=== PATIENT | male | born 1970 | race African-American/Black ===

== ENCOUNTER 2017-03-15 22:02 | Emergency (ER) | payer MEDICAID ==
[~2017-03-15] VITALS: Ht 175.3 cm; Wt 90.0 kg
[~2017-03-15 22:02] MED LIST: AMLO5TAB88 PO; ASPI-1079 PO; ATEN-42 PO; CARI350T PO; DIAZ10TA PO; HYDR-519 PO; HYDR12.54 PO; NORCO PO
[2017-03-15] MEDS ORDERED: SODIUM CHLORIDE 0.9% 1,000 ML IV ONE (22:56)
[2017-03-15] MEDS ORDERED: ONDANSETRON HCL 4MG/2ML VIAL IV ONE (23:15)
[2017-03-15 23:31] LABS: BASOPHILS % 0.6 % (0.0-2.0); EOSINOPHILS % 1.4 % (0.0-5.0); HEMATOCRIT. 33.8 % (42.0-52.0); LYMPHOCYTES % 40.9 % (20.0-50.0); MEAN CORPUSCULAR HEMOGLOBIN 31.6 pg (28.0-32.0); MEAN CORPUSCULAR HGB CONC 32.7 g/dL (31.0-37.0); MEAN CORPUSCULAR VOLUME 96.9 fL (80.0-94.0); MONOCYTES % 5.5 % (2.0-8.0); NEUTROPHILS % 51.6 % (40.0-76.0); PLATELET 351 x1000/uL (130-400); RED BLOOD CELL COUNT 3.49 mill/uL (4.7-6.1); RED CELL DISTRIBUTION WIDTH 14.1 % (11.6-14.6); WHITE BLOOD COUNT 5.7 x1000/uL (4.5-11.0)
[2017-03-15 23:43] LABS: PARTIAL THROMBOPLASTIN TIME 26.1 sec (24.0-34.0); PROTHROMBIN TIME 10.5 sec
[2017-03-15 23:50] LABS: ACETAMINOPHEN < 2 ug/mL (10-30); ANION GAP 13; CALCIUM 8.2 mg/dL (8.5-10.1); CARBON DIOXIDE 27 mEq/L (21-32); CHLORIDE 107 mEq/L (98-107); ETHANOL BLOOD < 10 mg/dL; INDEX HEMOLYSI 1 (1-3); INDEX ICTERIC 1 (1-4); INDEX LIPEMIC 1 (1-3); TROPONIN I < 0.02 ng/mL (0.00-0.04); UREA NITROGEN BLOOD 12 mg/dL (7-21); eGFR > 60 mL/min (>60)
[2017-03-16 00:12] LABS: *AMPHETAMINES SCREEN URINE NEGATIVE (NEGATIVE); *BARBITURATES SCREEN URINE NEGATIVE (NEGATIVE); *BENZODIAZEPINES SCREEN URINE PRESUMTIVE POSITIVE (NEGATIVE); *COCAINE SCREEN URINE NEGATIVE (NEGATIVE); CANNABINOID URINE SCREEN PRESUMTIVE POSITIVE (NEGATIVE); ECSTASY MDMA SCREEN URINE NEGATIVE (NEGATIVE); METHADONE URINE SCREEN NEGATIVE (NEGATIVE); OPIATES URINE SCREEN PRESUMTIVE POSITIVE (NEGATIVE); PHENCYCLIDINE URINE SCREEN NEGATIVE (NEGATIVE)
[2017-03-16 01:30] VITALS: BP 135/80
== END 2017-03-16 02:22 | disposition home or self-care (01) ==
LOC: ER 22:02
DX: G92 Toxic encephalopathy (principal); T40.2X1A Poisoning by other opioids, accidental (unintentional), initial encounter; F12.929 Cannabis use, unspecified with intoxication, unspecified; I10 Essential (primary) hypertension; D64.9 Anemia, unspecified; I45.10 Unspecified right bundle-branch block; I51.7 Cardiomegaly; Z79.82 Long term (current) use of aspirin
CPT/HCPCS: 36415; 80048; 80305; 80307; 80329; 84484; 85025; 85610; 85730; 93005; 96361; 96374; 99285; G0482; J2405; J7030; Z7610

== ENCOUNTER 2017-12-27 14:07 | Emergency (ER) | payer MEDICAID ==
[~2017-12-27] VITALS: Ht 175.3 cm; Wt 82.0 kg
[2017-12-27 20:25] VITALS: BP 134/86
[2017-12-27] MEDS ORDERED: DIAZEPAM 5 MG TABLET PO ONE (20:30)
== END 2017-12-27 21:15 | disposition home or self-care (01) ==
LOC: ER 14:27
DX: M54.5 Low back pain (principal); G89.29 Other chronic pain; F17.200 Nicotine dependence, unspecified, uncomplicated; J45.909 Unspecified asthma, uncomplicated; R56.9 Unspecified convulsions; I10 Essential (primary) hypertension; Z79.82 Long term (current) use of aspirin; Z88.6 Allergy status to analgesic agent; Z88.8 Allergy status to other drugs, medicaments and biological substances
CPT/HCPCS: 99283

== ENCOUNTER 2018-02-26 17:34 | Emergency (ER) | payer MEDICAID ==
[~2018-02-26] VITALS: Ht 177.8 cm; Wt 80.0 kg
[2018-02-26 23:16] LABS: BASOPHILS % 0.5 % (0.0-2.0); EOSINOPHILS % 1.2 % (0.0-5.0); HEMATOCRIT. 34.4 % (42.0-52.0); HEMOGLOBIN. 11.3 g/dL (14.0-18.0); LYMPHOCYTES % 30.5 % (20.0-50.0); MEAN CORPUSCULAR HEMOGLOBIN 31.7 pg (28.0-32.0); MEAN CORPUSCULAR VOLUME 96.3 fL (80.0-94.0); MEAN PLATELET VOLUME 5.9 fl (7.4-10.4); MONOCYTES % 6.2 % (2.0-8.0); NEUTROPHILS % 61.6 % (40.0-76.0); PLATELET 341 x1000/uL (130-400); RED BLOOD CELL COUNT 3.57 mill/uL (4.7-6.1); RED CELL DISTRIBUTION WIDTH 13.6 % (11.6-14.6)
[2018-02-26 23:20] LABS: ETHANOL BLOOD < 10 mg/dL
[2018-02-26 23:24] LABS: CHLORIDE 105 mEq/L (98-107); CREATINE KINASE 323 IU/L (39-308)
[2018-02-26] MEDS ORDERED: ACETAMINOPHEN 500MG TABLET PO ONE (23:30)
[2018-02-26] MEDS ORDERED: LEVETIRACETAM 100MG/ML ORAL SYR PO ONE (23:30)
[2018-02-26] MEDS ORDERED: LEVETIRACETAM 500MG TABLET PO NR (23:45)
[2018-02-26] MEDS: SODIUM CHLORIDE 0.9% 1,000 ML IV NR (23:49)
[2018-02-27 00:33] VITALS: BP 113/74
[2018-02-27] MEDS: SODIUM CHLORIDE 0.9% 1,000 ML IV NR (00:33)
== END 2018-02-27 00:37 | disposition home or self-care (01) ==
LOC: ER 17:46
DX: T39.1X1A Poisoning by 4-Aminophenol derivatives, accidental (unintentional), initial encounter (principal); T40.2X1A Poisoning by other opioids, accidental (unintentional), initial encounter; G89.29 Other chronic pain; F11.10 Opioid abuse, uncomplicated; I10 Essential (primary) hypertension; F41.9 Anxiety disorder, unspecified; J45.909 Unspecified asthma, uncomplicated; Z79.82 Long term (current) use of aspirin; Z88.6 Allergy status to analgesic agent; Z88.8 Allergy status to other drugs, medicaments and biological substances; Y92.89 Other specified places as the place of occurrence of the external cause
CPT/HCPCS: 36415; 70450; 80053; 80307; 80329; 82550; 84443; 85025; 93005; 96360; 99285; G0482; J7030; Z7610

== ENCOUNTER 2018-11-02 15:19 | Emergency (ER) | payer MEDICAID ==
[~2018-11-02] VITALS: Ht 175.3 cm; Wt 80.0 kg
[~2018-11-02 15:19] MED LIST changes: -CARI350T PO; +S350 PO
[2018-11-02] MEDS ORDERED: MORPHINE SULFATE 10 MG/ML CPJ IM ONE (17:00)
[2018-11-02] MEDS ORDERED: KETOROLAC 30MG/ML VIAL IM ONE (18:30)
[2018-11-02] MEDS ORDERED: ONDANSETRON 4MG ODT PO ONE (18:30)
[2018-11-02] MEDS ORDERED: HYDROCODONE/ACETAMINOPHEN 5/325MG TABLET PO PRN (18:45)
[2018-11-02 20:37] VITALS: BP 135/84
== END 2018-11-02 20:39 | disposition home or self-care (01) ==
LOC: ER 15:19
DX: S93.401A Sprain of unspecified ligament of right ankle, initial encounter (principal); I10 Essential (primary) hypertension; J45.909 Unspecified asthma, uncomplicated; F41.9 Anxiety disorder, unspecified; R56.9 Unspecified convulsions; W18.39XA Other fall on same level, initial encounter; Y93.55 Activity, bike riding; Y92.89 Other specified places as the place of occurrence of the external cause; Z88.6 Allergy status to analgesic agent; Z88.8 Allergy status to other drugs, medicaments and biological substances; Z79.82 Long term (current) use of aspirin
CPT/HCPCS: 73610; 73620; 96372; 99283; J1885; J2270; Q0162

== ENCOUNTER 2023-09-16 15:12 | Emergency (ER) | payer MEDICAID, OTHER ==
[~2023-09-16] VITALS: Ht 172.7 cm; Wt 75.0 kg
[~2023-09-16 15:12] MED LIST changes: +CARI350T28 PO; +DIAZ-570 PO; -DIAZ10TA PO; -S350 PO
[2023-09-16 15:15] VITALS: O2SAT 98
[2023-09-16] MEDS ORDERED: SODIUM CHLORIDE 0.9% 1,000 ML IV ONE (15:15)
[2023-09-16] MEDS ORDERED: LEVETIRACETAM 500MG PREMIX 100 ML IV ONE (15:15)
[2023-09-16 15:40] LABS: BASOPHILS % 0.8 % (0.0-2.0); LYMPHOCYTES % 20.6 % (20.0-50.0); MEAN CORPUSCULAR HEMOGLOBIN 32.3 pg (28.0-32.0); MEAN CORPUSCULAR HGB CONC 33.2 g/dL (31.0-37.0); MEAN PLATELET VOLUME 5.6 fl (7.4-10.4); NEUTROPHILS % 74.6 % (40.0-76.0); PLATELET 413 x1000/uL (130-400); RED BLOOD CELL COUNT 2.47 mill/uL (4.7-6.1); RED CELL DISTRIBUTION WIDTH 14.6 % (11.6-14.6)
[2023-09-16 15:52] LABS: INR 1.1; PARTIAL THROMBOPLASTIN TIME 29.7 sec (23.4-31.0); PROTHROMBIN TIME 12.1 sec (9.6-11.0)
[2023-09-16 16:04] LABS: CHLORIDE 100 mEq/L (98-107); INDEX HEMOLYSI 1 (1-3); INDEX ICTERIC 1 (1-4); INDEX LIPEMIC 1 (1-3); POTASSIUM 4.1 mEq/L (3.5-5.1); SODIUM 134 mEq/L (136-145)
[2023-09-16 16:15] LABS: ALANINE AMINOTRANSFERASE 48 IU/L (13-61); ALBUMIN 3.4 g/dL (3.4-5.0); ASPARTATE AMINOTRANSFERASE 32 IU/L (15-37); BILIRUBIN TOTAL 0.7 mg/dL (0.1-1.0); CALCIUM 8.8 mg/dL (8.5-10.1); CARBON DIOXIDE 28 mEq/L (21-32); CREATININE 1.3 mg/dL (0.6-1.3); ETHANOL BLOOD < 10 mg/dL (<10); GLUCOSE 105 mg/dL (70-105); NT PRO B-TYPE NATRIURETIC PEP 134 pg/mL (5-125); PROTEIN TOTAL 6.6 g/dL (6.0-8.3); TROPONIN I HIGH SENSITIVITY 10 ng/L (<78); UREA NITROGEN BLOOD 24 mg/dL (7-21)
[2023-09-16 20:22] LABS: TROPONIN I HIGH SENSITIVITY 11 ng/L (<78)
[2023-09-17 00:23] VITALS: BP 142/80; PULSE 89; RESP 20; TEMP 98.5
== END 2023-09-17 00:40 | disposition short-term general hospital (02) ==
LOC: ER 15:12
DX: S09.90XA Unspecified injury of head, initial encounter (principal); R07.89 Other chest pain; R55 Syncope and collapse; F41.9 Anxiety disorder, unspecified; J45.909 Unspecified asthma, uncomplicated; I10 Essential (primary) hypertension; Z79.899 Other long term (current) drug therapy; W18.39XA Other fall on same level, initial encounter; Y93.89 Activity, other specified; Y92.89 Other specified places as the place of occurrence of the external cause; Y99.8 Other external cause status
CPT/HCPCS: 80053; 80320; 83880; 85025; 85610; 85730; 84484; 36415; 71045; 70450; 93005; 96365; 99285; J1953; J7030; G0480

== ENCOUNTER 2023-09-19 12:51 | Emergency (ER) | payer OTHER ==
[~2023-09-19] VITALS: Ht 175.3 cm; Wt 74.0 kg
[2023-09-19 13:05] VITALS: O2SAT 99
[2023-09-19] MEDS ORDERED: GABA-532 MT (13:36)
[2023-09-19 14:24] VITALS: BP 102/79; PULSE 86; RESP 16; TEMP 98.3
== END 2023-09-19 14:32 | disposition home or self-care (01) ==
LOC: ER 12:51
DX: R52 Pain, unspecified (principal); Z88.6 Allergy status to analgesic agent; Z88.8 Allergy status to other drugs, medicaments and biological substances; Z88.5 Allergy status to narcotic agent; Z79.899 Other long term (current) drug therapy
CPT/HCPCS: 99283

== ENCOUNTER 2023-10-13 13:02 | Emergency (ER) | payer OTHER ==
[~2023-10-13] VITALS: Ht 175.3 cm; Wt 72.0 kg
[~2023-10-13 13:02] MED LIST changes: +GABA-532 MT
[2023-10-13 13:21] VITALS: O2SAT 99
[2023-10-13] MEDS ORDERED: LEVETIRACETAM 500MG TABLET PO ONE (14:00)
[2023-10-13 14:56] LABS: BASOPHILS % 0.3 % (0.0-2.0); EOSINOPHILS % 0.1 % (0.0-5.0); LYMPHOCYTES % 14.1 % (20.0-50.0); MEAN CORPUSCULAR HEMOGLOBIN 32.9 pg (28.0-32.0); MEAN CORPUSCULAR HGB CONC 33.2 g/dL (31.0-37.0); MEAN CORPUSCULAR VOLUME 98.9 fL (80.0-94.0); MEAN PLATELET VOLUME 5.5 fl (7.4-10.4); MONOCYTES % 4.5 % (2.0-8.0); PLATELET 487 x1000/uL (130-400); RED BLOOD CELL COUNT 3.03 mill/uL (4.7-6.1); RED CELL DISTRIBUTION WIDTH 15.7 % (11.6-14.6); WHITE BLOOD COUNT 6.7 x1000/uL (4.5-11.0)
[2023-10-13 15:30] LABS: ALANINE AMINOTRANSFERASE 29 IU/L (10-49); ALBUMIN 4.5 g/dL (3.2-4.8); ASPARTATE AMINOTRANSFERASE 19 IU/L (<34); BILIRUBIN TOTAL 0.9 mg/dL (0.1-1.0); CALCIUM 9.5 mg/dL (8.7-10.4); CARBON DIOXIDE 29 mEq/L (21-32); CHLORIDE 105 mEq/L (98-107); GLUCOSE 89 mg/dL (70-105); POTASSIUM 3.9 mEq/L (3.5-5.1); PROTEIN TOTAL 7.7 g/dL (6.0-8.3); SODIUM 139 mEq/L (136-145); UREA NITROGEN BLOOD 6 mg/dL (9-23)
[2023-10-13 16:30] VITALS: BP 130/68; PULSE 65; RESP 18; TEMP 98.9
== END 2023-10-13 17:00 | disposition home or self-care (01) ==
LOC: ER 13:14
DX: R56.9 Unspecified convulsions (principal); F41.9 Anxiety disorder, unspecified; M19.90 Unspecified osteoarthritis, unspecified site; J45.909 Unspecified asthma, uncomplicated; I10 Essential (primary) hypertension; F15.90 Other stimulant use, unspecified, uncomplicated
CPT/HCPCS: 36415; 73030; 80053; 83735; 85025; 99284

== ENCOUNTER 2023-10-15 09:18 | Emergency (ER) | payer OTHER ==
[~2023-10-15] VITALS: Ht 180.3 cm; Wt 82.0 kg
[2023-10-15 09:23] VITALS: O2SAT 100
[2023-10-15] MEDS ORDERED: METHADONE (09:23)
[2023-10-15] MEDS ORDERED: KEPPRA (09:23)
[2023-10-15] MEDS ORDERED: LEVETIRACETAM 1000MG PREMIX 100 ML IV ONE (09:30)
[2023-10-15 10:04] LABS: BASOPHILS % 0.3 % (0.0-2.0); EOSINOPHILS % 0.1 % (0.0-5.0); HEMATOCRIT. 33.9 % (42.0-52.0); HEMOGLOBIN. 10.8 g/dL (14.0-18.0); MEAN CORPUSCULAR HEMOGLOBIN 31.6 pg (28.0-32.0); MEAN CORPUSCULAR HGB CONC 31.9 g/dL (31.0-37.0); MEAN CORPUSCULAR VOLUME 99.1 fL (80.0-94.0); MEAN PLATELET VOLUME 5.7 fl (7.4-10.4); MONOCYTES % 3.5 % (2.0-8.0); NEUTROPHILS % 85.1 % (40.0-76.0); PLATELET 585 x1000/uL (130-400); RED BLOOD CELL COUNT 3.42 mill/uL (4.7-6.1); RED CELL DISTRIBUTION WIDTH 15.4 % (11.6-14.6); WHITE BLOOD COUNT 7.2 x1000/uL (4.5-11.0)
[2023-10-15 10:13] LABS: ALANINE AMINOTRANSFERASE 24 IU/L (10-49); ALBUMIN 4.8 g/dL (3.2-4.8); ASPARTATE AMINOTRANSFERASE 16 IU/L (<34); BILIRUBIN TOTAL 0.8 mg/dL (0.1-1.0); CARBON DIOXIDE 30 mEq/L (21-32); CHLORIDE 99 mEq/L (98-107); CREATININE 1.1 mg/dL (0.6-1.3); GLUCOSE 120 mg/dL (70-105); POTASSIUM 3.7 mEq/L (3.5-5.1); PROTEIN TOTAL 7.9 g/dL (6.0-8.3); SODIUM 134 mEq/L (136-145); UREA NITROGEN BLOOD 10 mg/dL (9-23)
[2023-10-15 10:53] LABS: ETHANOL BLOOD < 10 mg/dL (<10)
[2023-10-15] MEDS ORDERED: ACETAMINOPHEN 325MG TABLET PO ONE (11:45)
[2023-10-15 12:04] VITALS: TEMP 98.7
[2023-10-15] MEDS ORDERED: TOPUD MT (12:23)
[2023-10-15] MEDS ORDERED: OXYCODONE HCL/ACETAMINOPHEN 5/325MG TABLET PO ONE (12:30)
[2023-10-15 12:41] VITALS: BP 203/136; PULSE 74; RESP 16
[2023-10-15 12:50] LABS: CLARITY URINE CLEAR (CLEAR); COLOR URINE YELLOW (YELLOW); GLUCOSE URINE NEGATIVE (NEGATIVE); KETONES URINE NEGATIVE (NEGATIVE); LEUKOCYTE ESTERASE URINE NEGATIVE (NEGATIVE); NITRITE URINE NEGATIVE (NEGATIVE); OCCULT BLOOD URINE NEGATIVE (NEGATIVE); PH URINE 6.5 (4.5-8.0); PROTEIN URINE TRACE (NEGATIVE)
[2023-10-15 12:53] LABS: YEAST URINE NONE SEEN
[2023-10-15 13:09] LABS: BACTERIA URINE FEW; SQUAMOUS EPITHELIAL CELL URINE FEW /lpf (RARE/1+); WBC URINE 0-2 /hpf (0-2)
[2023-10-15 13:25] LABS: *AMPHETAMINES SCREEN URINE NEGATIVE (NEGATIVE); *BARBITURATES SCREEN URINE NEGATIVE (NEGATIVE); *BENZODIAZEPINES SCREEN URINE PRESUMPTIVE POSITIVE (NEGATIVE); *COCAINE SCREEN URINE NEGATIVE (NEGATIVE); CANNABINOID URINE SCREEN PRESUMPTIVE POSITIVE (NEGATIVE); ECSTASY MDMA SCREEN URINE NEGATIVE (NEGATIVE); METHADONE URINE SCREEN Pos (NEGATIVE); OPIATES URINE SCREEN NEGATIVE (NEGATIVE); PHENCYCLIDINE URINE SCREEN NEGATIVE (NEGATIVE)
== END 2023-10-15 13:52 | disposition home or self-care (01) ==
LOC: ER 09:18
DX: G40.909 Epilepsy, unspecified, not intractable, without status epilepticus (principal); I10 Essential (primary) hypertension; J45.909 Unspecified asthma, uncomplicated; Z88.6 Allergy status to analgesic agent; Z88.8 Allergy status to other drugs, medicaments and biological substances; Z88.5 Allergy status to narcotic agent; Z79.899 Other long term (current) drug therapy
CPT/HCPCS: 80053; 80305; 81003; 80320; 85025; 36415; 71045; 72170; 70450; 96365; 99285; J1953; G0480

== ENCOUNTER 2023-11-10 13:29 | Emergency (ER) | payer OTHER ==
[~2023-11-10] VITALS: Ht 157.5 cm; Wt 82.0 kg
[~2023-11-10 13:29] MED LIST changes: +KEPPRA; +METHADONE; +TOPUD MT
[2023-11-10 13:35] VITALS: O2SAT 99
[2023-11-10] MEDS ORDERED: OXYCODONE HCL 10MG TABLET SR 12HR PO ONE (16:00)
[2023-11-10] MEDS ORDERED: KETOROLAC 60MG/2ML VIAL IM ONE (16:00)
[2023-11-10 18:31] VITALS: BP 165/102; PULSE 62; RESP 16; TEMP 98.6
== END 2023-11-10 18:41 | disposition home or self-care (01) ==
LOC: ER 13:41
DX: G89.29 Other chronic pain (principal); M54.9 Dorsalgia, unspecified; M25.512 Pain in left shoulder; M25.511 Pain in right shoulder; Z88.5 Allergy status to narcotic agent; Z88.6 Allergy status to analgesic agent; Z88.8 Allergy status to other drugs, medicaments and biological substances; Z79.899 Other long term (current) drug therapy
CPT/HCPCS: 73030; 72070; 99284; Z7610 ×2

== ENCOUNTER 2024-01-10 05:13 | Emergency (ER) | payer OTHER ==
[~2024-01-10] VITALS: Ht 172.7 cm; Wt 65.0 kg
[2024-01-10 05:18] VITALS: O2SAT 100
[2024-01-10 06:05] LABS: BASOPHILS % 1.1 % (0.0-2.0); EOSINOPHILS % 1.6 % (0.0-5.0); HEMATOCRIT. 32.9 % (42.0-52.0); HEMOGLOBIN. 10.7 g/dL (14.0-18.0); LYMPHOCYTES % 52.9 % (20.0-50.0); MEAN CORPUSCULAR HEMOGLOBIN 31.1 pg (28.0-32.0); MEAN CORPUSCULAR HGB CONC 32.5 g/dL (31.0-37.0); MEAN CORPUSCULAR VOLUME 95.7 fL (80.0-94.0); MEAN PLATELET VOLUME 5.9 fl (7.4-10.4); MONOCYTES % 6.6 % (2.0-8.0); NEUTROPHILS % 37.8 % (40.0-76.0); PLATELET 320 x1000/uL (130-400); RED BLOOD CELL COUNT 3.44 mill/uL (4.7-6.1); RED CELL DISTRIBUTION WIDTH 14.3 % (11.6-14.6); WHITE BLOOD COUNT 3.9 x1000/uL (4.5-11.0)
[2024-01-10 06:21] LABS: ALANINE AMINOTRANSFERASE 27 IU/L (10-49); ALBUMIN 4.4 g/dL (3.2-4.8); ASPARTATE AMINOTRANSFERASE 29 IU/L (<34); BILIRUBIN TOTAL 0.8 mg/dL (0.1-1.0); CALCIUM 9.4 mg/dL (8.7-10.4); CARBON DIOXIDE 27 mEq/L (21-32); CHLORIDE 108 mEq/L (98-107); CREATININE 1.1 mg/dL (0.6-1.3); GLUCOSE 87 mg/dL (70-105); POTASSIUM 3.7 mEq/L (3.5-5.1); PROTEIN TOTAL 6.9 g/dL (6.0-8.3); SODIUM 140 mEq/L (136-145); UREA NITROGEN BLOOD 13 mg/dL (9-23)
[2024-01-10 06:26] LABS: ETHANOL BLOOD < 10 mg/dL (<10)
[2024-01-10] MEDS: LEVETIRACETAM 1000MG PREMIX 100 ML IV ONE (06:41)
[2024-01-10] MEDS: HYDRALAZINE 20MG/ML VIAL IV ONE (07:38)
[2024-01-10 08:36] VITALS: BP 135/78; PULSE 62; RESP 12; TEMP 98
== END 2024-01-10 08:38 | disposition home or self-care (01) ==
LOC: ER 05:15 → EDBEDREQ 07:35 → CANBEDREQ 07:59 → ER 08:38
DX: G40.901 Epilepsy, unspecified, not intractable, with status epilepticus (principal); I10 Essential (primary) hypertension; J45.909 Unspecified asthma, uncomplicated; Z88.6 Allergy status to analgesic agent; Z88.8 Allergy status to other drugs, medicaments and biological substances; Z88.5 Allergy status to narcotic agent; Z79.899 Other long term (current) drug therapy; Z79.82 Long term (current) use of aspirin
CPT/HCPCS: 80053; 80320; 82962; 85025; 36415; 70450; 96365; 96375; 99285; J1953; J0360; Z7610 ×4; G0480

== ENCOUNTER 2024-01-24 06:17 | Emergency (ER) | payer OTHER ==
[~2024-01-24] VITALS: Ht 175.3 cm; Wt 71.0 kg
[2024-01-24 06:21] VITALS: TEMP 98; O2SAT 97
[2024-01-24 07:32] LABS: BASOPHILS % 0.2 % (0.0-2.0); EOSINOPHILS % 0.1 % (0.0-5.0); HEMATOCRIT. 33.7 % (42.0-52.0); HEMOGLOBIN. 10.6 g/dL (14.0-18.0); LYMPHOCYTES % 16.3 % (20.0-50.0); MEAN CORPUSCULAR HEMOGLOBIN 31.4 pg (28.0-32.0); MEAN CORPUSCULAR HGB CONC 31.4 g/dL (31.0-37.0); MEAN PLATELET VOLUME 6.1 fl (7.4-10.4); MONOCYTES % 5.9 % (2.0-8.0); NEUTROPHILS % 77.5 % (40.0-76.0); PLATELET 334 x1000/uL (130-400); RED BLOOD CELL COUNT 3.37 mill/uL (4.7-6.1); RED CELL DISTRIBUTION WIDTH 14.8 % (11.6-14.6)
[2024-01-24 07:47] LABS: ALANINE AMINOTRANSFERASE 12 IU/L (10-49); ALBUMIN 4.6 g/dL (3.2-4.8); ASPARTATE AMINOTRANSFERASE 17 IU/L (<34); BILIRUBIN TOTAL 0.9 mg/dL (0.1-1.0); CALCIUM 9.4 mg/dL (8.7-10.4); CARBON DIOXIDE 26 mEq/L (21-32); CHLORIDE 107 mEq/L (98-107); CREATININE 1.1 mg/dL (0.6-1.3); GLUCOSE 121 mg/dL (70-105); POTASSIUM 3.9 mEq/L (3.5-5.1); PROTEIN TOTAL 7.6 g/dL (6.0-8.3); SODIUM 138 mEq/L (136-145); UREA NITROGEN BLOOD 15 mg/dL (9-23)
[2024-01-24] MEDS: LEVETIRACETAM 1000MG PREMIX 100 ML IV ONE (07:57)
[2024-01-24 08:00] LABS: ETHANOL BLOOD < 10 mg/dL (<10)
[2024-01-24 08:53] VITALS: BP 165/84; PULSE 60; RESP 14
== END 2024-01-24 09:02 | disposition home or self-care (01) ==
LOC: ER 06:17
DX: R56.9 Unspecified convulsions (principal); I10 Essential (primary) hypertension; Z79.899 Other long term (current) drug therapy
CPT/HCPCS: 80053; 80320; 85025; 36415; 96374; 99283; J1953; G0480

== ENCOUNTER 2024-02-16 23:11 | Emergency (ER) | payer OTHER ==
[~2024-02-16] VITALS: Ht 177.8 cm; Wt 73.0 kg
[2024-02-16 23:16] VITALS: O2SAT 100
[2024-02-17 00:03] LABS: BASOPHILS % 0.7 % (0.0-2.0); EOSINOPHILS % 0.6 % (0.0-5.0); HEMATOCRIT. 33.8 % (42.0-52.0); HEMOGLOBIN. 11.1 g/dL (14.0-18.0); LYMPHOCYTES % 27.3 % (20.0-50.0); MEAN CORPUSCULAR HEMOGLOBIN 32.2 pg (28.0-32.0); MEAN CORPUSCULAR HGB CONC 32.8 g/dL (31.0-37.0); MEAN CORPUSCULAR VOLUME 98.4 fL (80.0-94.0); MEAN PLATELET VOLUME 5.8 fl (7.4-10.4); NEUTROPHILS % 63.4 % (40.0-76.0); PLATELET 356 x1000/uL (130-400); RED BLOOD CELL COUNT 3.44 mill/uL (4.7-6.1); RED CELL DISTRIBUTION WIDTH 14.8 % (11.6-14.6); WHITE BLOOD COUNT 6.1 x1000/uL (4.5-11.0)
[2024-02-17] MEDS: SODIUM CHLORIDE 0.9% 1,000 ML IV ONE (00:17)
[2024-02-17 00:25] LABS: ACETAMINOPHEN < 2 ug/mL (10-30); ALANINE AMINOTRANSFERASE 22 IU/L (10-49); ALBUMIN 4.8 g/dL (3.2-4.8); ASPARTATE AMINOTRANSFERASE 19 IU/L (<34); BILIRUBIN TOTAL 0.7 mg/dL (0.1-1.0); CARBON DIOXIDE 30 mEq/L (21-32); CHLORIDE 104 mEq/L (98-107); CREATINE KINASE 270 IU/L (46-171); CREATININE 1.2 mg/dL (0.6-1.3); ETHANOL BLOOD < 10 mg/dL (<10); GLUCOSE 90 mg/dL (70-105); POTASSIUM 3.8 mEq/L (3.5-5.1); PROTEIN TOTAL 7.6 g/dL (6.0-8.3); SODIUM 138 mEq/L (136-145); TROPONIN I HIGH SENSITIVITY 5 ng/L (3.0-53); UREA NITROGEN BLOOD 12 mg/dL (9-23)
[2024-02-17] MEDS: HYDRALAZINE 20MG/ML VIAL IV NR ×2 (01:22→05:45)
[2024-02-17 01:28] LABS: CLARITY URINE CLEAR (CLEAR); COLOR URINE YELLOW (YELLOW); GLUCOSE URINE NEGATIVE (NEGATIVE); KETONES URINE NEGATIVE (NEGATIVE); LEUKOCYTE ESTERASE URINE NEGATIVE (NEGATIVE); NITRITE URINE NEGATIVE (NEGATIVE); OCCULT BLOOD URINE TRACE (NEGATIVE); PH URINE 7.5 (4.5-8.0); PROTEIN URINE NEGATIVE (NEGATIVE); SPECIFIC GRAVITY URINE 1.004 (1.005-1.030); UROBILINOGEN URINE 0.2 E.U./dL (0.2-1.0)
[2024-02-17 01:37] LABS: *AMPHETAMINES SCREEN URINE NEGATIVE (NEGATIVE); *BARBITURATES SCREEN URINE NEGATIVE (NEGATIVE); *BENZODIAZEPINES SCREEN URINE PRESUMPTIVE POSITIVE (NEGATIVE); *COCAINE SCREEN URINE NEGATIVE (NEGATIVE); CANNABINOID URINE SCREEN PRESUMPTIVE POSITIVE (NEGATIVE); ECSTASY MDMA SCREEN URINE NEGATIVE (NEGATIVE); METHADONE URINE SCREEN Pos (NEGATIVE); OPIATES URINE SCREEN NEGATIVE (NEGATIVE); PHENCYCLIDINE URINE SCREEN PRESUMTIVE POSITIVE (NEGATIVE)
[2024-02-17] MEDS: LORAZEPAM 1MG TABLET PO ONE (02:19)
[2024-02-17 02:24] LABS: SQUAMOUS EPITHELIAL CELL URINE FEW /lpf (RARE/1+)
[2024-02-17 02:25] LABS: BACTERIA URINE NONE SEEN; RBC URINE 0-2 /hpf (0-2); WBC URINE NONE SEEN /hpf (0-2)
[2024-02-17] MEDS: MORPHINE SULFATE 4 MG/ML INJ (FOR IV/IM USE) IV ONE (08:51)
[2024-02-17 08:52] VITALS: BP 146/68; PULSE 64; RESP 16; TEMP 98.1
== END 2024-02-17 09:08 | disposition short-term general hospital (02) ==
LOC: ER 23:19 → CANBEDREQ 02-18 14:22
DX: G92.9 Unspecified toxic encephalopathy (principal); I10 Essential (primary) hypertension; Z79.899 Other long term (current) drug therapy
CPT/HCPCS: 80053; 80307; 80329; 80320; 82550; 82962; 83880; 85025; 84484; 36415; 71045; 99285; 80305; 81003; 70450; 96374; 96375; 96376; J7030; J0360; J2270; G0480

== ENCOUNTER 2024-03-21 17:00 | Emergency (ER) | payer OTHER ==
[~2024-03-21] VITALS: Ht 167.6 cm; Wt 68.0 kg
[2024-03-21 17:02] VITALS: O2SAT 99
[2024-03-21 17:15] VITALS: TEMP 97.9
[2024-03-21] MEDS: TETANUS, DIPHTHERIA, PERTUSSIS VAC/PF 0.5ML (>10YR OLD) IM ONE (17:57)
[2024-03-21] MEDS: CEFAZOLIN 1000MG PREMIX 50 ML IV ONE (17:57)
[2024-03-21 18:01] VITALS: BP 131/81; PULSE 56; RESP 14
[2024-03-21] MEDS: KETOROLAC 15MG/ML VIAL IV ONE (18:01)
[2024-03-21] MEDS ORDERED: CEPH500C2 MT (18:35)
== END 2024-03-21 19:09 | disposition home or self-care (01) ==
LOC: ER 17:00
DX: S60.921A Unspecified superficial injury of right hand, initial encounter (principal); R56.9 Unspecified convulsions; I10 Essential (primary) hypertension; Z88.8 Allergy status to other drugs, medicaments and biological substances; X58.XXXA Exposure to other specified factors, initial encounter; Y93.89 Activity, other specified; Y92.89 Other specified places as the place of occurrence of the external cause; Y99.8 Other external cause status
CPT/HCPCS: 99284; 96365; 96375; 90715; 90471; J0690; J1885

== ENCOUNTER 2025-06-07 13:18 | Emergency (ER) | payer MEDICAID ==
[~2025-06-07] VITALS: Ht 177.8 cm; Wt 75.0 kg
[~2025-06-07 13:18] MED LIST changes: -ATEN-42 PO; -CARI350T28 PO; -DIAZ-570 PO; +FURO20TA4 PO; +GABA-1180 MT; -GABA-532 MT; -HYDR12.54 PO; +KEPP500 PO; +LOSA50TA41 PO; -METHADONE; -NORCO PO
[2025-06-07 13:20] VITALS: TEMP 37.5; O2SAT 100
[2025-06-07] MEDS: ONDANSETRON 4MG ODT PO ONE (13:50)
[2025-06-07 16:00] LABS: BASOPHILS % 0.4 % (0.0-2.0); EOSINOPHILS % 0.0 % (0.0-5.0); HEMATOCRIT. 32.4 % (42.0-52.0); HEMOGLOBIN. 10.6 g/dL (14.0-18.0); LYMPHOCYTES % 19.1 % (20.0-50.0); MEAN PLATELET VOLUME 5.7 fl (7.4-10.4); MONOCYTES % 3.7 % (2.0-8.0); NEUTROPHILS % 76.8 % (40.0-76.0); PLATELET 322 x1000/uL (130-400); RED BLOOD CELL COUNT 3.37 mill/uL (4.7-6.1); RED CELL DISTRIBUTION WIDTH 14.0 % (11.6-14.6)
[2025-06-07 16:17] LABS: CREATININE 1.3 mg/dL (0.6-1.3); UREA NITROGEN BLOOD 6 mg/dL (9-23)
[2025-06-07 16:18] LABS: TROPONIN I HIGH SENSITIVITY < 4 ng/L (3.0-53)
[2025-06-07] MEDS ORDERED: ONDA4TAB50 MT (16:38)
[2025-06-07] MEDS: KETOROLAC 15MG/ML VIAL IM ONE (17:05)
[2025-06-07 17:06] VITALS: BP 186/112; PULSE 55; RESP 18; O2SAT 100
== END 2025-06-07 17:23 | disposition home or self-care (01) ==
LOC: ER 13:44
DX: R07.89 Other chest pain (principal); F11.20 Opioid dependence, uncomplicated; I10 Essential (primary) hypertension; Z79.899 Other long term (current) drug therapy; Z79.82 Long term (current) use of aspirin; Z88.8 Allergy status to other drugs, medicaments and biological substances; Z88.6 Allergy status to analgesic agent
CPT/HCPCS: 80048; 85025; 84484; 36415; 71045; 96372; 99284; Q0162; J1885; Z7610